=== PATIENT | male | born 1955 | race African-American/Black ===

== ENCOUNTER 2019-11-05 13:44 | Emergency (ER) | payer OTHER ==
[~2019-11-05] VITALS: Ht 177.8 cm; Wt 131.1 kg
[2019-11-05 14:21] LABS: URINE BILIRUBIN NEGATIVE (Negative); URINE BLOOD 3+ (Negative); URINE CLARITY CLEAR; URINE COLOR YELLOW; URINE GLUCOSE-RANDOM* NEGATIVE (Negative); URINE KETONES NEGATIVE (Negative); URINE LEUKOCYTES-REFLEX NEGATIVE (Negative); URINE NITRITE-REFLEX NEGATIVE (Negative); URINE PROTEIN (DIPSTICK) NEGATIVE (Negative); URINE SPECIFIC GRAVITY >= 1.030 (1.005-1.035); URINE UROBILINOGEN 0.2 E.U./dl (0.2-1.0)
[2019-11-05 14:32] LABS: CASTS None Seen /LPF (None Seen); CRYSTALS None Seen /LPF (None Seen); SQUAMOUS 0-3 Few /LPF (0-3); URINE RBC >20 Many /HPF (0-2)
[2019-11-05 14:33] LABS: YEAST-REFLEX Present (None Seen)
[2019-11-05 14:34] LABS: BACTERIA-REFLEX 1-9 Few /HPF (None Seen); URINE WBC-REFLEX None Seen /HPF (0-5)
[2019-11-05] MEDS ORDERED: ZESTRIL20 MG PO (14:48)
[2019-11-05] MEDS ORDERED: FLOMAX0.4 MG PO (14:49)
[2019-11-05 15:23] LABS: ABSOLUTE NEUTROPHILS 6.4 thou/uL (1.4-8.2); BASOPHILS 0.5 % (0.0-2.0); EOSINOPHILS 2.6 % (0.0-3.0); HEMATOCRIT 44.4 % (42.0-52.0); HEMOGLOBIN 15.5 gm/dL (14.0-18.0); MCH 30.6 pg (26.0-34.0); MCHC 34.8 g/dL (28.0-37.0); MCV 87.9 fL (80.0-100.0); PLATELET COUNT 260 thou/uL (150-400); POLYS 64.9 % (36.0-66.0); RBC 5.05 mil/uL (4.50-6.00); RDW 14.3 % (10.5-14.5); WBC 9.9 thou/uL (4.0-11.0)
[2019-11-05 15:31] LABS: CALCIUM 8.6 mg/dL (8.5-10.1); CREATININE 1.5 mg/dL (0.7-1.3); POTASSIUM 3.8 mmol/L (3.5-5.1)
[2019-11-05] MEDS ORDERED: PHENAZOPYRIDIN200 M2 PO (15:52)
[2019-11-05 16:41] VITALS: BP 121/88
== END 2019-11-05 16:42 | disposition home or self-care (01) ==
LOC: ER 13:44
PROVIDERS: Emergency Medicine
DX: R31.9 Hematuria, unspecified (principal); I10 Essential (primary) hypertension; Z88.5 Allergy status to narcotic agent; Z88.0 Allergy status to penicillin; Z79.899 Other long term (current) drug therapy